=== PATIENT | male | born 1980 | race Caucasian/White ===

== ENCOUNTER → 2019-11-14 12:51 | Outpatient (BNVA) | payer OTHER, SELFPAY | PROVIDERS: Visit Provider Dermatology | DX: L72.0 Epidermal cyst (principal); L72.8 Other follicular cysts of the skin and subcutaneous tissue; L81.4 Other melanin hyperpigmentation; L81.8 Other specified disorders of pigmentation | CPT/HCPCS: 10040; 10060; 99203 ==

== ENCOUNTER 2020-12-31 07:00 | Outpatient (CLI) | payer OTHER, SELFPAY ==
[2020-12-31 07:19] VITALS: BP 110/73; PULSE 68; RESP 16; TEMP 36.6; O2SAT 99; BMI 25.7
[2020-12-31 07:56] VITALS: BP 106/67; PULSE 67; RESP 15; O2SAT 96
[2020-12-31 08:48] VITALS: BP 105/70; PULSE 66; RESP 16; TEMP 36.8; O2SAT 95
== END 2020-12-31 07:01 | disposition home or self-care (01) ==
LOC: OPS 07:03
PROVIDERS: Visit Provider Nurse Practitioner Family
DX: U07.1 COVID-19 (principal)
CPT/HCPCS: 96365